=== PATIENT | female | born 1985 | race African-American/Black ===

== ENCOUNTER 2017-01-06 01:02 | Emergency (ER) | payer BC ==
[~2017-01-06] VITALS: Ht 162.6 cm; Wt 73.9 kg
[2017-01-06 01:57] LABS: BILIRUBIN,URINE NEGATIVE (NEG); GLUCOSE,URINE NEGATIVE (NEG); NITRITE,URINE NEGATIVE (NEG); PROTEIN,URINE NEGATIVE (NEG-TRACE); UROBILINOGEN,URINE 0.2 mg/dL (0.2 mg/dL)
[2017-01-06 02:05] LABS: BACTERIA,URINE MODERATE /HPF (0-FEW); RBC,URINE 0 /HPF (0-2); SQUAMOUS EPITHELIAL CELL,UR MANY /LPF
[2017-01-06 02:07] LABS: BASO % 1 % (0-3); EOS % 2 % (0-3); HEMATOCRIT 35.4 % (36.0-47.0); HEMOGLOBIN 12.3 g/dL (12.0-15.5); LYMPH # 1.9 x10^3/uL (1.0-4.8); LYMPH % 41 % (24-48); MEAN CORPUSCULAR HEMOGLOBIN 30 pg (25-35); MEAN CORPUSCULAR HGB CONC 35 g/dL (31-37); MEAN CORPUSCULAR VOLUME 86 fL (79-100); MONO % 11 % (0-9); NEUT % 45 % (31-73); PLATELET COUNT 152 x10^3/uL (140-400); RED BLOOD COUNT 4.14 x10^6/uL (3.50-5.40); RED CELL DISTRIBUTION WIDTH 13.5 % (11.5-14.5); WHITE BLOOD COUNT 4.5 x10^3/uL (4.0-11.0)
[2017-01-06 02:16] LABS: CALCIUM 8.5 mg/dL (8.5-10.1); CREATININE 0.8 mg/dL (0.6-1.0); GFR 101.2; POTASSIUM 3.5 mmol/L (3.5-5.1)
[2017-01-06 02:30] VITALS: BP 122/61
--- NOTE | 2017-01-06 02:58 | RAD ---
INDICATION: LT PELVIC PAIN , POSITIVE PREG TEST IN ER COMPARISON: None. TECHNIQUE: Grayscale and color ultrasound images uterus and adnexa. Transabdominal and transvaginal images obtained. FINDINGS: Uterus: 100 x 80 x 55 mm. Intrauterine gestational sac is identified with a pole with a crown-rump length of 4 mm and heart beat of 111. Too early in to adequately assess placenta Right Ovary: 36 x 14 x 13 mm. Left Ovary: 33 x 20 x 18 mm. Vascular flow identified to bilateral ovaries. Possible corpus luteum cyst on left. IMPRESSION: 1. Intrauterine gestational sac with pole identified with estimated gestational age of 6 weeks and 1 day with a positive heartbeat. Recommend routine anomaly screening at 18-22 weeks. Electronically signed by: Bryon Mclean MD (01/06/2017 2:54 AM) [facility] [place]
[2017-01-06] MEDS ORDERED: NITR100C62 PO (03:13)
--- NOTE | 2017-01-06 03:15 | PHYS DOC ---
Past Medical History Past Medical History: No Pertinent History Past Surgical History: Appendectomy Alcohol Use: Occasionally Drug Use: Marijuana Adult General Chief Complaint Chief Complaint: ABDOMINAL PAIN HPI HPI Patient is a 31 year old female who presents with abdominal pain in . The patient is approximately 6 weeks by dates, s/p 3 elective abortions. She states she had positive test but has not yet followed up in OB clinic. She states she is an employee at [email or web address] & her job requires her to lean over a metal bar that presses on her abdomen. She reports lower abdominal discomfort tonight. She denies fevers/chills, nausea/vomiting, diarrhea, dysuria/hematuria, vaginal bleeding/discharge. Review of Systems Review of Systems Constitutional: Denies fever or chills HENT: Denies nasal congestion or sore throat Respiratory: Denies cough or shortness of breath Cardiovascular: Denies chest pain or edema GI: Reports abdominal pain, denies nausea, vomiting, or diarrhea : Denies dysuria or hematuria Musculoskeletal: Denies back pain or joint pain Integument: Denies rash Neurologic: Denies headache Allergies Allergies Allergies Coded Allergies Type Severity Reaction Last Updated Verified No Known Drug Allergies 04/08/15 No Physical Exam Physical Exam Constitutional: Well developed, well nourished, no acute distress, non-toxic appearance. HENT: Normocephalic, atraumatic, bilateral external ears normal, oropharynx moist, nose normal. Eyes: conjunctiva normal, no discharge. Cardiovascular: RRR, no murmurs, no edema. Lungs & Thorax: LCTAB, no wheezing, no respiratory distress. Abdomen: soft, no focal abdominal tenderness with palpation, no rebound/guarding , no masses or pulsatile masses, nondistended. : normal appearing external genitalia, normal appearing cervix with closed os , no CMT/adnexal tenderness Skin: Warm, dry, no erythema, no rash. Back: No CVA tenderness. Extremities: No tenderness, no edema. Neurologic: Alert and oriented X 3, no focal deficits noted. Psychologic: Affect normal, judgement normal, mood normal. Current Patient Data Vital Signs Vital Signs Date Time Temp Pulse Resp B/P (MAP) Pulse Ox O2 Delivery O2 Flow Rate FiO2 01/06/17 03:30 76 99 Room Air 01/06/17 03:30 20 01/06/17 02:30 122/61 (81) 01/06/17 01:46 98.2 98.2 Lab Values Laboratory Tests Test 01/06/17 00:40 01/06/17 01:45 01/06/17 01:55 POC Urine HCG, Qualitative Hcg positive (Negative) Urine Collection Type Unknown Urine Color Yellow Urine Clarity Cloudy Urine pH 6.0 Urine Specific [place] 1.020 Urine Protein Negative mg/dL (NEG-TRACE) Urine Glucose (UA) Negative mg/dL (NEG) Urine Ketones (Stick) Negative mg/dL (NEG) Urine Blood Negative (NEG) Urine Nitrite Negative (NEG) Urine Bilirubin Negative (NEG) Urine Urobilinogen Dipstick 0.2 mg/dL (0.2 mg/dL) Urine Leukocyte Esterase Small (NEG) Urine RBC 0 /HPF (0-2) Urine WBC 5-10 /HPF (0-4) Urine Squamous Epithelial Cells Many /LPF Urine Bacteria Moderate /HPF (0-FEW) Urine Mucus Mod /LPF White Blood Count 4.5 x10^3/uL (4.0-11.0) Red Blood Count 4.14 x10^6/uL (3.50-5.40) Hemoglobin 12.3 g/dL (12.0-15.5) Hematocrit 35.4 % (36.0-47.0) L Mean Corpuscular Volume 86 fL (79-100) Mean Corpuscular Hemoglobin 30 pg (25-35) Mean Corpuscular Hemoglobin Concent 35 g/dL (31-37) Red Cell Distribution Width 13.5 % (11.5-14.5) Platelet Count 152 x10^3/uL (140-400) Neutrophils (%) (Auto) 45 % (31-73) Lymphocytes (%) (Auto) 41 % (24-48) Monocytes (%) (Auto) 11 % (0-9) H Eosinophils (%) (Auto) 2 % (0-3) Basophils (%) (Auto) 1 % (0-3) Neutrophils # (Auto) 2.0 x10^3uL (1.8-7.7) Lymphocytes # (Auto) 1.9 x10^3/uL (1.0-4.8) Monocytes # (Auto) 0.5 x10^3/uL (0.0-1.1) Eosinophils # (Auto) 0.1 x10^3/uL (0.0-0.7) Basophils # (Auto) 0.0 x10^3/uL (0.0-0.2) Maternal Serum HCG Beta Subunit 37466 mIU/mL (0-5) H Sodium Level 138 mmol/L (136-145) Potassium Level 3.5 mmol/L (3.5-5.1) Chloride Level 102 mmol/L (98-107) Carbon Dioxide Level 26 mmol/L (21-32) Anion Gap 10 (6-14) Blood Urea Nitrogen 7 mg/dL (7-20) Creatinine 0.8 mg/dL (0.6-1.0) Estimated GFR (Cockcroft-Gault) 101.2 Glucose Level 90 mg/dL (70-99) Calcium Level 8.5 mg/dL (8.5-10.1) Laboratory Tests 01/06/17 01:55 Laboratory Tests 01/06/17 01:55 Microbiology 01/06/17 Wet Prep - Final, Complete EKG EKG [] Radiology/Procedures Radiology/Procedures PROCEDURE: OB < 14 WKS INDICATION: LT PELVIC PAIN , POSITIVE PREG TEST IN ER COMPARISON: None. TECHNIQUE: Grayscale and color ultrasound images uterus and adnexa. Transabdominal and transvaginal images obtained. FINDINGS: Uterus: 100 x 80 x 55 mm. Intrauterine gestational sac is identified with a pole with a crown-rump length of 4 mm and heart beat of 111. Too early in to adequately assess placenta Right Ovary: 36 x 14 x 13 mm. Left Ovary: 33 x 20 x 18 mm. Vascular flow identified to bilateral ovaries. Possible corpus luteum cyst on left. IMPRESSION: 1. Intrauterine gestational sac with pole identified with estimated gestational age of 6 weeks and 1 day with a positive heartbeat. Recommend routine anomaly screening at 18-22 weeks. Electronically signed by: Naheed Espino MD (01/06/2017 2:54 AM) [facility] DICTATED and SIGNED BY: NAHEED ESPINO MD[] Course & Med Decision Making Course & Med Decision Making Pertinent Labs and Imaging studies reviewed. (See chart for details) The patient presents with abdominal pain and . Unremarkable physical exam. Ultrasound shows early IUP. UA shows contamination but positive for leukocyte esterase, WBCs, bacteria. Will give macrobid. Recommend rest, hydration, tylenol. Follow up in OB clinic with Dr. aMyo in 2-3 days. Come back for high fever, severe pain, uncontrolled vomiting, heavy bleeding requiring greater than 1 pad per hour, any otherwise worsening condition. Discharged home in stable condition. [] Dragon Disclaimer Dragon Disclaimer This electronic medical record was generated, in whole or in part, using a voice recognition dictation system. Departure Departure Impression: Primary Impression: Abdominal pain during in first trimester Additional Impression: Urinary tract infection Disposition: 01 HOME, SELF-CARE Condition: STABLE Referrals: UNKNOWN PCP NAME (PCP) MILLIE MAYO Jr, MD Patient Instructions: Abdominal Pain During , [id number], - Urinary Tract Infection Additional Instructions: You were seen in the emergency department today for abdominal pain and . Ultrasound showed a heartbeat and developing baby in your uterus. You have a urinary tract infection. Please take the prescribed antibiotic. Drink fluids to stay hydrated. Take Tylenol for pain. Take vitamin daily. Avoid work that causes discomfort to abdomen. Follow-up with an OB doctor such as Dr. Mayo in 2-3 days. Come back for severe pain, uncontrolled vomiting, heavy bleeding requiring use of > 1 pad per hour, any otherwise worsening condition. Scripts Nitrofurantoin Monohyd/M-Cryst (MACROBID 100 MG CAPSULE) 100 Mg Capsule 1 CAP PO BID, #14 CAP Prov: SONJA VILLELA MD 01/06/17 Problem Qualifiers Additional Impression: Urinary tract infection Urinary tract infection type: site unspecified Hematuria presence: without hematuria Qualified Codes: N39.0 - Urinary tract infection, site not specified SONJA VILLELA MD Jan 06, 2017 03:15
== END 2017-01-06 03:51 | disposition home or self-care (01) ==
LOC: ER 01:02
DX: O23.41 Unspecified infection of urinary tract in pregnancy, first trimester (principal); Z3A.01 Less than 8 weeks gestation of pregnancy
CPT/HCPCS: 36415; 76801; 80048; 81001; 81025; 84702; 85025; 87086; 87491; 87591; 99285; Q0111

== ENCOUNTER 2017-05-30 01:04 | Observation (INO) | payer BC ==
[2017-05-30] MEDS ORDERED: 0.9 % SODIUM CHLORIDE 10 ML DISP.SYRIN. IV ×2 (01:30)
[2017-05-30] MEDS: IV RINGERS,LACTATED 1000ML 1,000 ML IV ×2 (01:45)
[2017-05-30 01:52] LABS: BILIRUBIN,URINE NEGATIVE (NEG); CLARITY,URINE CLEAR; COLOR,URINE YELLOW; GLUCOSE,URINE NEGATIVE (NEG); NITRITE,URINE NEGATIVE (NEG); PH,URINE 7.5; PROTEIN,URINE NEGATIVE (NEG-TRACE); UROBILINOGEN,URINE 0.2 mg/dL (0.2 mg/dL)
[2017-05-30 02:51] LABS: RBC,URINE 0 /HPF (0-2)
[2017-05-30 02:52] LABS: BACTERIA,URINE FEW /HPF (0-FEW); SQUAMOUS EPITHELIAL CELL,UR MOD /LPF
[2017-05-30] MEDS ORDERED: IV RINGERS,LACTATED 1000ML 1,000 ML IV ×2 (03:30)
== END 2017-05-30 03:52 | disposition home or self-care (01) ==
LOC: 3 SO LND 01:04
DX: O26.892 Other specified pregnancy related conditions, second trimester (principal); R10.9 Unspecified abdominal pain; Z3A.27 27 weeks gestation of pregnancy
CPT/HCPCS: 81001; 87086; 96360; G0378; G0379; J7120

== ENCOUNTER 2017-08-08 22:26 | Observation (INO) | payer BC ==
[2017-08-08] MEDS ORDERED: IV RINGERS,LACTATED 1000ML 1,000 ML IV (22:30)
[2017-08-08 22:50] LABS: BILIRUBIN,URINE NEGATIVE (NEG); CLARITY,URINE CLEAR; COLOR,URINE YELLOW; GLUCOSE,URINE NEGATIVE (NEG); NITRITE,URINE NEGATIVE (NEG); PH,URINE 6.5; PROTEIN,URINE NEGATIVE (NEG-TRACE)
[2017-08-08 22:56] LABS: BARBITURATES NEG (NEG); BENZODIAZEPINES NEG (NEG); CANNABINOIDS NEG (NEG); COCAINE NEG (NEG); METHADONE NEG (NEG); OPIATES NEG (NEG); PHENCYCLIDINE NEG (NEG)
[2017-08-08 22:58] LABS: AMPHETAMINE/METHAMPHETAMINE NEG (NEG); ETHANOL, URINE NEG (NEG)
[2017-08-08 23:01] LABS: BACTERIA,URINE MANY /HPF (0-FEW); RBC,URINE 0 /HPF (0-2); SQUAMOUS EPITHELIAL CELL,UR MANY /LPF
== END 2017-08-09 00:25 | disposition home or self-care (01) ==
LOC: 3 SO LND 22:26
DX: O26.893 Other specified pregnancy related conditions, third trimester (principal); R10.9 Unspecified abdominal pain; Z3A.37 37 weeks gestation of pregnancy
CPT/HCPCS: 80307; 81001; 87086; G0378; G0379

== ENCOUNTER 2017-08-25 19:24 | Inpatient (IN) | payer BC ==
[2017-08-25] MEDS ORDERED: PENICILLIN G K 5,000,000 UNIT in IV DEXTROSE 5% 100 ML IV (19:30)
[2017-08-25] MEDS ORDERED: OXYTOCIN 30 UNIT/500 ML PREMIX 500 ML IV (19:30)
[2017-08-25] MEDS ORDERED: TERBUTALINE 1 MG/ML VIAL. SQ (19:30)
[2017-08-25] MEDS ORDERED: ONDANSETRON PF 4 MG/2 ML VIAL. IV (19:30)
[2017-08-25] MEDS ORDERED: LIDOCAINE 1% PF 30 ML VIAL. INJ (19:30)
[2017-08-25] MEDS ORDERED: CITRIC ACID/SODIUM CITRATE 30 ML SOLUTION. PO (19:30)
[2017-08-25] MEDS ORDERED: fentaNYL PF VIAL 100 MCG/2 ML VIAL IV (19:30)
[2017-08-25] MEDS ORDERED: 0.9 % SODIUM CHLORIDE 10 ML DISP.SYRIN. IV (19:30)
[2017-08-25 20:28] LABS: BILIRUBIN,URINE NEGATIVE (NEG); CLARITY,URINE CLEAR; COLOR,URINE YELLOW; GLUCOSE,URINE NEGATIVE (NEG); NITRITE,URINE NEGATIVE (NEG); PROTEIN,URINE NEGATIVE (NEG-TRACE); UROBILINOGEN,URINE 0.2 mg/dL (0.2 mg/dL)
[2017-08-25 20:31] LABS: AMPHETAMINE/METHAMPHETAMINE NEG (NEG); BARBITURATES NEG (NEG); BENZODIAZEPINES NEG (NEG); CANNABINOIDS NEG (NEG); COCAINE NEG (NEG); ETHANOL, URINE NEG (NEG); METHADONE NEG (NEG); OPIATES NEG (NEG); PHENCYCLIDINE NEG (NEG)
[2017-08-25] MEDS: DINOPROSTONE 10 MG SUPP.VAG VG (20:34)
[2017-08-25] MEDS: IV RINGERS,LACTATED 1000ML 1,000 ML IV (20:37)
[2017-08-25 20:43] LABS: ADD MAN DIFF? NO
[2017-08-25 20:46] LABS: BASO % 1 % (0-3); EOS # 0.1 x10^3/uL (0.0-0.7); EOS % 2 % (0-3); HEMATOCRIT 35.5 % (36.0-47.0); HEMOGLOBIN 12.3 g/dL (12.0-15.5); LYMPH # 1.5 x10^3/uL (1.0-4.8); LYMPH % 22 % (24-48); MEAN CORPUSCULAR HEMOGLOBIN 29 pg (25-35); MEAN CORPUSCULAR HGB CONC 35 g/dL (31-37); MEAN CORPUSCULAR VOLUME 84 fL (79-100); MONO # 0.5 x10^3/uL (0.0-1.1); MONO % 7 % (0-9); NEUT # 4.7 x10^3uL (1.8-7.7); NEUT % 68 % (31-73); PLATELET COUNT 202 x10^3/uL (140-400); RED BLOOD COUNT 4.22 x10^6/uL (3.50-5.40); RED CELL DISTRIBUTION WIDTH 13.7 % (11.5-14.5); WHITE BLOOD COUNT 6.8 x10^3/uL (4.0-11.0)
[2017-08-25 20:51] LABS: BACTERIA,URINE MANY /HPF (0-FEW); RBC,URINE >40 /HPF (0-2); SQUAMOUS EPITHELIAL CELL,UR MOD /LPF; WBC,URINE >40 /HPF (0-4)
[2017-08-26] MEDS ORDERED: PENICILLIN G K 2,500,000 UNIT in IV DEXTROSE 5% 50 ML IV (00:01)
[2017-08-26] MEDS: IV RINGERS,LACTATED 1000ML 1,000 ML IV ×2 (05:55→08:21)
[2017-08-26] MEDS: OXYTOCIN 30 UNIT/500 ML PREMIX 500 ML IV (05:55)
[2017-08-26] MEDS: PENICILLIN G K 5,000,000 UNIT in IV DEXTROSE 5% 100 ML IV (05:56)
[2017-08-26] MEDS: fentaNYL PF VIAL 100 MCG/2 ML VIAL IV (10:11)
[2017-08-26] MEDS: PENICILLIN G K 2,500,000 UNIT in IV DEXTROSE 5% 50 ML IV (10:13)
[2017-08-26] MEDS ORDERED: OXYTOCIN 30 UNIT/500 ML PREMIX 500 ML IV (11:00)
[2017-08-26] MEDS ORDERED: HYDROCORTISONE 1% TOPICAL OINTMENT 30GM TUBE. TP (11:00)
[2017-08-26] MEDS ORDERED: diphenhydrAMINE HCL 25 MG CAPSULE PO (11:00)
[2017-08-26] MEDS ORDERED: oxyCODONE/APAP 5/325 1 TAB TABLET PO (11:00)
[2017-08-26] MEDS ORDERED: BENZOCAINE 20% TOPICAL AEROSOL SPRAY 57GM CAN. TP (11:00)
[2017-08-26] MEDS ORDERED: 0.9 % SODIUM CHLORIDE 10 ML DISP.SYRIN. IV (11:00)
[2017-08-26] MEDS ORDERED: ACETAMINOPHEN 325 MG TABLET. PO (11:00)
[2017-08-26] MEDS ORDERED: ZOLPIDEM 5 MG TABLET. PO (11:00)
[2017-08-26] MEDS ORDERED: MMR per PROTOCOL. MC (11:00)
[2017-08-26] MEDS ORDERED: MAG HYDROX/ALUMINUM HYD/SIMETH 30 ML ORAL.SUSP PO (11:00)
[2017-08-26] MEDS ORDERED: IBUPROFEN 800 MG TABLET. PO (11:00)
[2017-08-26] MEDS ORDERED: PHENYLEPH/MINERAL OIL/PETROLAT RECTAL OINTMENT 28GM TUBE. RC (11:00)
[2017-08-26] MEDS ORDERED: SIMETHICONE 80 MG TAB.CHEW PO (11:00)
[2017-08-26] MEDS: IBUPROFEN 800 MG TABLET. PO ×2 (13:09→22:20)
[2017-08-26] MEDS: ACETAMINOPHEN 325 MG TABLET. PO (18:41)
[2017-08-27 05:38] LABS: ADD MAN DIFF? NO
[2017-08-27 06:07] LABS: BASO % 0 % (0-3); EOS # 0.1 x10^3/uL (0.0-0.7); EOS % 1 % (0-3); HEMATOCRIT 31.4 % (36.0-47.0); HEMOGLOBIN 10.7 g/dL (12.0-15.5); LYMPH % 21 % (24-48); MEAN CORPUSCULAR HEMOGLOBIN 29 pg (25-35); MEAN CORPUSCULAR HGB CONC 34 g/dL (31-37); MEAN CORPUSCULAR VOLUME 84 fL (79-100); MONO # 0.7 x10^3/uL (0.0-1.1); MONO % 7 % (0-9); NEUT # 6.9 x10^3uL (1.8-7.7); NEUT % 71 % (31-73); PLATELET COUNT 155 x10^3/uL (140-400); RED BLOOD COUNT 3.72 x10^6/uL (3.50-5.40); RED CELL DISTRIBUTION WIDTH 13.8 % (11.5-14.5); WHITE BLOOD COUNT 9.7 x10^3/uL (4.0-11.0)
[2017-08-27 07:50] LABS: RPR Negative (Non Reactive)
[2017-08-27] MEDS ORDERED: FERROUS SULFATE 325 MG TABLET. PO (08:00)
[2017-08-27] MEDS: IBUPROFEN 800 MG TABLET. PO ×2 (10:35→21:05)
[2017-08-27] MEDS: MAGNESIUM HYDROXIDE 2,400 MG/30 ML ORAL.SUSP. PO (21:01)
[2017-08-28] MEDS: IBUPROFEN 800 MG TABLET. PO (08:48)
[2017-08-28] MEDS: DOCUSATE SODIUM 100 MG CAPSULE. PO (08:48)
== END 2017-08-28 16:38 | disposition home or self-care (01) | DRG 775 ==
LOC: 3 SO LND 19:24 → 3 NORTH 08-26 13:00
PROC: 10907ZC Drainage of Amniotic Fluid, Therapeutic from Products of Conception, Via Natural or Artificial Opening (ICD-10-PCS; principal; 2017-08-25)
PROC: 10E0XZZ Delivery of Products of Conception, External Approach (ICD-10-PCS; 2017-08-25)
DX: O99.824 Streptococcus B carrier state complicating childbirth (principal); Z37.0 Single live birth; Z3A.39 39 weeks gestation of pregnancy
CPT/HCPCS: 36415; 80307; 81001; 85025; 86593; 86850; 86900; 86901; 87086; J2540; J2590; J3010; J7120